=== PATIENT | male | born 1970 | race Caucasian/White ===

== ENCOUNTER 2020-09-29 13:18 | Emergency (ER) | payer SELFPAY ==
[~2020-09-29] VITALS: Ht 187.9 cm; Wt 99.8 kg
[2020-09-29] MEDS ORDERED: ULTRAM50 MG PO (15:52)
== END 2020-09-29 16:21 | disposition home or self-care (01) ==
LOC: ED 13:18
DX: S62.613A Displaced fracture of proximal phalanx of left middle finger, initial encounter for closed fracture (principal); X58.XXXA Exposure to other specified factors, initial encounter; Y93.89 Activity, other specified; Y92.89 Other specified places as the place of occurrence of the external cause; Y99.8 Other external cause status